=== PATIENT | female | born 1965 | race Caucasian/White ===

== ENCOUNTER 2016-07-16 09:21 | Emergency (ER) | payer MEDICARE ==
[~2016-07-16] VITALS: Ht 160 cm; Wt 77.1 kg
[2016-07-16] MEDS ORDERED: AMLO10TA4 PO (10:15)
[2016-07-16] MEDS ORDERED: LISI-167 PO (10:15)
[2016-07-16] MEDS ORDERED: QUET25TA5 PO (10:15)
[2016-07-16] MEDS ORDERED: AA8/1CAP3 PO (10:15)
[2016-07-16] MEDS ORDERED: SODIUM CHLORIDE 0.9% 1,000 ML IV ONE (10:51)
[2016-07-16] MEDS ORDERED: ACETAMINOPHEN 325 MG TABLET ONE (10:59)
[2016-07-16] MEDS ORDERED: SODIUM CHLORIDE 0.9% 1,000ML IVBOLUS ONE (11:00)
[2016-07-16] MEDS ORDERED: SODIUM CHLORIDE FLUSH 10ML SYR IVF ONE (11:00)
[2016-07-16] MEDS ORDERED: BENZONATATE 100 MG CAPSULE PO ONE (11:00)
[2016-07-16] MEDS ORDERED: ALBUTEROL/IPRATROPIUM 2.5MG/0.5MG, 3 ML NPPB ONE (11:00)
[2016-07-16] MEDS ORDERED: ACETAMINOPHEN 325 MG TABLET PO ONE (11:00)
[2016-07-16 11:42] VITALS: BP 106/70
[2016-07-16 12:14] LABS: BLOOD UREA NITROGEN 8 mg/dL (7-18)
[2016-07-16 12:20] LABS: ASPARTATE AMINO TRANSFERASE 10 U/L (15-37)
[2016-07-16 12:21] LABS: IS PT STATUS REG ER OR PRE ER? YES
== END 2016-07-16 12:48 | disposition home or self-care (01) ==
LOC: ED 10:51
DX: R07.89 Other chest pain (principal); J20.8 Acute bronchitis due to other specified organisms; F17.210 Nicotine dependence, cigarettes, uncomplicated; R06.00 Dyspnea, unspecified; I10 Essential (primary) hypertension
CPT/HCPCS: 36415; 71010; 80053; 83605; 83880; 84484; 85025; 87040; 93005; 93970; 96360; 99285; J7030; J7512

== ENCOUNTER 2016-07-19 11:09 | Inpatient (IN) | payer MEDICARE ==
[~2016-07-19] VITALS: Ht 162.6 cm; Wt 79.0 kg
[~2016-07-19 11:09] MED LIST: AA8/1CAP3 PO; AMLO10TA4 PO; LISI-167 PO; QUET25TA5 PO
[2016-07-19] MEDS ORDERED: SODIUM CHLORIDE 0.9% 1,000 ML IV ONE ×2 (11:33→13:14)
[2016-07-19] MEDS ORDERED: ALBUTEROL/IPRATROPIUM 2.5MG/0.5MG, 3 ML ONE ×4 (11:47→14:49)
[2016-07-19] MEDS ORDERED: ACETAMINOPHEN 325 MG TABLET ONE (12:05)
[2016-07-19 12:17] LABS: ABG COLLECTION SITE RIGHT RADIAL; COLLATERAL CIRCULATION TESTING NORMAL; FIO2 80 %
[2016-07-19 12:29] LABS: DIFF TOTAL CELLS COUNTED 100 CELL DIFF
[2016-07-19] MEDS ORDERED: ACETAMINOPHEN 325 MG TABLET PO ONE (12:30)
[2016-07-19 12:31] LABS: VERIFY COUNTS? YES
[2016-07-19 12:32] LABS: BLOOD UREA NITROGEN 11 mg/dL (7-18)
[2016-07-19 12:38] LABS: ASPARTATE AMINO TRANSFERASE 60 U/L (15-37)
[2016-07-19 12:45] LABS: RAPID INFLUENZA A Negative (Negative)
[2016-07-19 12:46] LABS: RAPID INFLUENZA B POSITIVE (Negative)
[2016-07-19] MEDS ORDERED: SODIUM CHLORIDE 0.9% 1,000ML IVBOLUS ONE (13:30)
[2016-07-19] MEDS ORDERED: PIPERACILLIN/TAZO 3.375 GM in SODIUM CHLORIDE 0.9% 50 ML IVPB ONE (13:30)
[2016-07-19] MEDS: ALBUTEROL/IPRATROPIUM 2.5MG/0.5MG, 3 ML NPPB SCH ×3 (13:40→22:30)
[2016-07-19] MEDS ORDERED: ALBUTEROL/IPRATROPIUM 2.5MG/0.5MG, 3 ML NPPB SCH (14:00)
[2016-07-19] MEDS ORDERED: BISACODYL 10 MG SUPP PR PRN (14:30)
[2016-07-19] MEDS ORDERED: POLYETHYLENE GLYCOL 17 GM PACKET PO PRN (14:30)
[2016-07-19] MEDS ORDERED: ACETAMINOPHEN 325 MG TABLET PO PRN (14:30)
[2016-07-19] MEDS ORDERED: ENOXAPARIN 40 MG/0.4 ML ONE (14:45)
[2016-07-19] MEDS ORDERED: methylPREDNISolone SOD SUCC 125 MG/2 ML ONE (14:45)
[2016-07-19] MEDS: methylPREDNISolone SOD SUCC 125 MG/2 ML IVPush SCH ×2 (14:48→19:46)
[2016-07-19] MEDS: ENOXAPARIN 40 MG/0.4 ML SQ SCH (14:49)
[2016-07-19 17:37] VITALS: BP 115/77
[2016-07-19 18:03] VITALS: BP 137/93
[2016-07-19] MEDS ORDERED: OMEP10CA4 PO (18:11)
[2016-07-19] MEDS ORDERED: AMIT100T PO (18:11)
[2016-07-19] MEDS: NICOTINE 7 MG/24 HR PATCH.TD24 TD SCH (19:46)
[2016-07-19] MEDS: FAMOTIDINE 20 MG/2 ML IV SCH (19:46)
[2016-07-19] MEDS: PIPERACILLIN/TAZO 3.375 GM in SODIUM CHLORIDE 0.9% 50 ML IV SCH (19:46)
[2016-07-19] MEDS: HYDROcodone/APAP 5/325 TABLET PO PRN (19:47)
[2016-07-19 20:31] LABS: IS PT STATUS REG ER OR PRE ER? NO
[2016-07-20] MEDS: HYDROcodone/APAP 5/325 TABLET PO PRN ×6 (00:26→22:35)
[2016-07-20] MEDS: PIPERACILLIN/TAZO 3.375 GM in SODIUM CHLORIDE 0.9% 50 ML IV SCH ×4 (01:57→20:16)
[2016-07-20] MEDS: methylPREDNISolone SOD SUCC 125 MG/2 ML IVPush SCH ×4 (01:57→20:16)
[2016-07-20] MEDS: ALBUTEROL/IPRATROPIUM 2.5MG/0.5MG, 3 ML NPPB SCH ×6 (02:21→21:31)
[2016-07-20 04:31] VITALS: BP 131/76
[2016-07-20 04:40] LABS: ASPARTATE AMINO TRANSFERASE 41 U/L (15-37); BLOOD UREA NITROGEN 15 mg/dL (7-18)
[2016-07-20 05:50] LABS: ABG COLLECTION SITE LEFT RADIAL; COLLATERAL CIRCULATION TESTING NORMAL
[2016-07-20] MEDS: FAMOTIDINE 20 MG/2 ML IV SCH ×2 (07:44→20:16)
[2016-07-20] MEDS ORDERED: VANCOMYCIN PER PHARMACY MC PRN ×2 (09:00→11:00)
[2016-07-20] MEDS ORDERED: FUROSEMIDE 20 MG/2 ML IV ONE (09:00)
[2016-07-20] MEDS ORDERED: PHARMACOKINETIC MONITORING MC PRN (11:00)
[2016-07-20] MEDS ORDERED: PHARMACOKINETIC CONSULTATION MC ONE (11:00)
[2016-07-20] MEDS: VANCOMYCIN 1,400 MG in SODIUM CHLORIDE 0.9% 250 ML IV SCH ×2 (11:04→23:44)
[2016-07-20] MEDS: ENOXAPARIN 40 MG/0.4 ML SQ SCH (13:51)
[2016-07-20] MEDS: NICOTINE 7 MG/24 HR PATCH.TD24 TD SCH (20:16)
[2016-07-21] MEDS: PIPERACILLIN/TAZO 3.375 GM in SODIUM CHLORIDE 0.9% 50 ML IV SCH ×4 (03:01→20:07)
[2016-07-21] MEDS: methylPREDNISolone SOD SUCC 125 MG/2 ML IVPush SCH ×2 (03:01→07:35)
[2016-07-21] MEDS: HYDROcodone/APAP 5/325 TABLET PO PRN ×5 (03:01→21:37)
[2016-07-21] MEDS: ALBUTEROL/IPRATROPIUM 2.5MG/0.5MG, 3 ML NPPB SCH ×6 (03:25→23:00)
[2016-07-21 03:36] VITALS: BP 112/67
[2016-07-21 04:54] LABS: BLOOD UREA NITROGEN 17 mg/dL (7-18)
[2016-07-21 05:05] LABS: DIFF TOTAL CELLS COUNTED 100 CELL DIFF
[2016-07-21 05:07] LABS: VERIFY COUNTS? YES
[2016-07-21] MEDS: FAMOTIDINE 20 MG/2 ML IV SCH ×2 (07:35→20:07)
[2016-07-21] MEDS ORDERED: POTASSIUM CHLORIDE 20 MEQ TAB.ER.PRT PO ONE (08:00)
[2016-07-21] MEDS ORDERED: FUROSEMIDE 20 MG/2 ML IV ONE (09:00)
[2016-07-21] MEDS ORDERED: ALBUMIN HUMAN 25% 100 ML IV SCH (11:30)
[2016-07-21] MEDS: ENOXAPARIN 40 MG/0.4 ML SQ SCH (14:25)
[2016-07-21] MEDS: methylPREDNISolone SOD SUCC 40 MG/ML IVPush SCH (16:48)
[2016-07-21] MEDS: NICOTINE 7 MG/24 HR PATCH.TD24 TD SCH (20:07)
[2016-07-22] MEDS: methylPREDNISolone SOD SUCC 40 MG/ML IVPush SCH ×3 (01:26→19:21)
[2016-07-22] MEDS: PIPERACILLIN/TAZO 3.375 GM in SODIUM CHLORIDE 0.9% 50 ML IV SCH ×2 (01:26→08:09)
[2016-07-22] MEDS: HYDROcodone/APAP 5/325 TABLET PO PRN ×6 (01:26→23:31)
[2016-07-22] MEDS: ALBUTEROL/IPRATROPIUM 2.5MG/0.5MG, 3 ML NPPB SCH ×6 (02:37→23:20)
[2016-07-22 04:00] VITALS: BP 148/92
[2016-07-22 07:50] LABS: BLOOD UREA NITROGEN 17 mg/dL (7-18)
[2016-07-22] MEDS: FAMOTIDINE 20 MG/2 ML IV SCH (08:09)
[2016-07-22] MEDS: ALBUMIN HUMAN 25% 100 ML IV SCH ×2 (09:22→20:03)
[2016-07-22] MEDS: FUROSEMIDE 20 MG/2 ML IV SCH ×2 (10:05→21:12)
[2016-07-22] MEDS: CEFTRIAXONE PMX 1GM/50ML 50 ML IV SCH (10:38)
[2016-07-22] MEDS: ENOXAPARIN 40 MG/0.4 ML SQ SCH (15:01)
[2016-07-22 17:23] VITALS: BP 171/98
[2016-07-22] MEDS ORDERED: hydrALAzine 20 MG/ML, 1ML IV PRN (17:30)
[2016-07-22] MEDS: NICOTINE 7 MG/24 HR PATCH.TD24 TD SCH (19:00)
[2016-07-22] MEDS ORDERED: FAMOTIDINE 20 MG TABLET PO SCH (21:00)
[2016-07-23] MEDS: ALBUTEROL/IPRATROPIUM 2.5MG/0.5MG, 3 ML NPPB SCH ×5 (03:17→19:10)
[2016-07-23 04:00] VITALS: BP 118/59
[2016-07-23] MEDS: HYDROcodone/APAP 5/325 TABLET PO PRN ×4 (05:14→19:31)
[2016-07-23 05:23] LABS: BLOOD UREA NITROGEN 22 mg/dL (7-18)
[2016-07-23] MEDS: FUROSEMIDE 20 MG TABLET PO SCH (09:34)
[2016-07-23] MEDS: CEFTRIAXONE PMX 1GM/50ML 50 ML IV SCH (09:34)
[2016-07-23] MEDS: POTASSIUM CHLORIDE 20 MEQ TAB.ER.PRT PO SCH ×2 (09:35→16:50)
[2016-07-23] MEDS: methylPREDNISolone SOD SUCC 40 MG/ML IVPush SCH (09:35)
[2016-07-23] MEDS: AMITRIPTYLINE 100 MG TABLET PO SCH (11:00)
[2016-07-23] MEDS: QUETIAPINE 100MG TABLET PO SCH (11:01)
[2016-07-23] MEDS: LISINOPRIL 10 MG TABLET PO SCH (11:01)
[2016-07-23] MEDS: AMLODIPINE 5 MG TABLET PO SCH (11:01)
[2016-07-23] MEDS: OMEPRAZOLE 20 MG CAPSULE.DR PO SCH (11:01)
[2016-07-23 16:15] VITALS: BP 110/75
[2016-07-23] MEDS ORDERED: POTASSIUM CHLORIDE 10 MEQ TABLET.ER ONE (16:48)
[2016-07-23] MEDS: ENOXAPARIN 40 MG/0.4 ML SQ SCH (16:50)
[2016-07-23] MEDS: NICOTINE 7 MG/24 HR PATCH.TD24 TD SCH (19:31)
[2016-07-24] MEDS: HYDROcodone/APAP 5/325 TABLET PO PRN ×5 (00:40→20:24)
[2016-07-24 01:12] VITALS: BP 140/87
[2016-07-24 01:58] VITALS: BP 144/90
[2016-07-24] MEDS: ALBUTEROL/IPRATROPIUM 2.5MG/0.5MG, 3 ML NPPB SCH ×4 (06:45→19:40)
[2016-07-24] MEDS: FUROSEMIDE 20 MG TABLET PO SCH (07:49)
[2016-07-24] MEDS: AMLODIPINE 5 MG TABLET PO SCH (07:49)
[2016-07-24] MEDS: OMEPRAZOLE 20 MG CAPSULE.DR PO SCH (07:49)
[2016-07-24] MEDS: LISINOPRIL 10 MG TABLET PO SCH (07:50)
[2016-07-24 08:41] VITALS: BP 100/69
[2016-07-24] MEDS ORDERED: POTASSIUM CHLORIDE 20 MEQ TAB.ER.PRT PO ONE ×2 (10:30→12:00)
[2016-07-24] MEDS: CEFTRIAXONE PMX 1GM/50ML 50 ML IV SCH (10:34)
[2016-07-24 15:21] VITALS: BP 110/77
[2016-07-24] MEDS: ENOXAPARIN 40 MG/0.4 ML SQ SCH (17:11)
[2016-07-24 20:01] VITALS: BP 122/76
[2016-07-24] MEDS: AMITRIPTYLINE 100 MG TABLET PO SCH (20:24)
[2016-07-24] MEDS: QUETIAPINE 100MG TABLET PO SCH (20:24)
[2016-07-24] MEDS: GUAIFENESIN ER 600 MG TABLET PO SCH (20:24)
[2016-07-24] MEDS: NICOTINE 7 MG/24 HR PATCH.TD24 TD SCH (20:25)
[2016-07-25 02:30] VITALS: BP 122/65
[2016-07-25] MEDS: HYDROcodone/APAP 5/325 TABLET PO PRN ×4 (02:58→15:04)
[2016-07-25 06:03] LABS: ASPARTATE AMINO TRANSFERASE 40 U/L (15-37); BLOOD UREA NITROGEN 24 mg/dL (7-18)
[2016-07-25] MEDS: ALBUTEROL/IPRATROPIUM 2.5MG/0.5MG, 3 ML NPPB SCH (07:00)
[2016-07-25 07:29] VITALS: BP 118/78
[2016-07-25] MEDS: AMLODIPINE 5 MG TABLET PO SCH (07:41)
[2016-07-25] MEDS: FUROSEMIDE 20 MG TABLET PO SCH (07:41)
[2016-07-25] MEDS: GUAIFENESIN ER 600 MG TABLET PO SCH (07:41)
[2016-07-25] MEDS: OMEPRAZOLE 20 MG CAPSULE.DR PO SCH (07:42)
[2016-07-25] MEDS: LISINOPRIL 10 MG TABLET PO SCH (07:42)
[2016-07-25] MEDS: CEFTRIAXONE PMX 1GM/50ML 50 ML IV SCH (10:00)
[2016-07-25] MEDS ORDERED: PRED20TA PO (10:22)
[2016-07-25] MEDS ORDERED: IPRA3AMP NPPB (10:22)
[2016-07-25] MEDS ORDERED: CEFD300C37 PO (10:22)
[2016-07-25] MEDS ORDERED: GUAI600T22 PO (10:22)
[2016-07-25] MEDS ORDERED: ALBUTEROL/IPRATROPIUM 2.5MG/0.5MG, 3 ML NPPB PRN (11:00)
[2016-07-25] MEDS ORDERED: PNEUMOCOCCAL 23 VACCINE IM-VACC ONE (12:00)
[2016-07-25] MEDS ORDERED: CEFDINIR 300 MG CAPSULE PO SCH ×2 (12:03→21:00)
[2016-07-25 13:40] VITALS: BP 126/85
== END 2016-07-25 17:16 | disposition home or self-care (01) | DRG 291 ==
LOC: ED 13:29 → EDIP 13:30 → ED 13:40 → CCU 17:17 → 3NE 07-23 11:33
PROVIDERS: ADMIT Hospitalist; ATTEND Hospitalist
PROC: 5A09457 Assistance with Respiratory Ventilation, 24-96 Consecutive Hours, Continuous Positive Airway Pressure (ICD-10-PCS; principal; 2016-07-19)
DX: I11.0 Hypertensive heart disease with heart failure (principal); J96.01 Acute respiratory failure with hypoxia; J44.1 Chronic obstructive pulmonary disease with (acute) exacerbation; I50.33 Acute on chronic diastolic (congestive) heart failure; E87.6 Hypokalemia; F17.200 Nicotine dependence, unspecified, uncomplicated; I36.1 Nonrheumatic tricuspid (valve) insufficiency; J10.1 Influenza due to other identified influenza virus with other respiratory manifestations; M79.7 Fibromyalgia; Z51.5 Encounter for palliative care; Z82.49 Family history of ischemic heart disease and other diseases of the circulatory system; Z84.1 Family history of disorders of kidney and ureter; Z88.6 Allergy status to analgesic agent; Z71.6 Tobacco abuse counseling
CPT/HCPCS: 36415; 36600; 71010; 80048; 80053; 82040; 82803; 83605; 83735; 83880; 84145; 84484; 85025; 87040; 87070; 87081; 87205; 87400; 90732; 93005; 93306; 94640; 94660; 96361; 96365; 96375; J0696; J1650; J2543; J3370; J7620; P9047; J0360; J1940; J2920; J2930; J7030; J7050; J7512; S0028